=== PATIENT | female | born 1935 | race Hispanic/Latino ===

== ENCOUNTER 2018-04-15 18:39 | Inpatient (IN) | payer MEDICARE ==
[~2018-04-15] VITALS: Ht 165.1 cm; Wt 87.6 kg
[2018-04-15 19:41] LABS: APPEARANCE,URINE Cloudy (CLEAR); BILIRUBIN,URINE Negative (NEGATIVE); COLOR,URINE Yellow (YELLOW); GLUCOSE, URINE (UA) Negative (NEGATIVE); KETONES,URINE Negative (NEGATIVE); LEUKOCYTE ESTERASE ,URINE Large (NEGATIVE); NITRATE,URINE Positive (NEGATIVE); OCCULT BLOOD,URINE Nonhemolyzed Trace (NEGATIVE); PROTEIN,URINE Negative (NEGATIVE)
[2018-04-15 20:03] LABS: BACTERIA,URINE Moderate /HPF (None Seen); SQUAMOUS EPITHELIAL CELL,UR 0-2 /HPF (0-2)
[2018-04-15 20:53] LABS: BASOPHILS % (AUTO) 0.4 % (0.0-5.0); EOSINOPHILS % (AUTO) 6.5 % (0.0-8.0); HEMATOCRIT 39.1 % (36-48); MEAN CORPUSCULAR HEMOGLOBIN 30.6 pg (27.0-33.0); MEAN CORPUSCULAR HGB CONC 33.8 g/dL (32.0-36.0); MEAN CORPUSCULAR VOLUME 90.5 fL (79-99); NEUTROPHILS % (AUTO) 66.1 % (40.0-77.0); NUCLEATED RED BLOOD CELLS 0.1 % (0.0-0.19); PLATELET COUNT (AUTO) 227 K/uL (130-400); RED BLOOD CELL COUNT(AUTO) 4.32 MIL/uL (4.00-5.50); RED CELL DISTRIBUTION WIDTH 13.1 % (11.0-15.5); WHITE BLOOD COUNT (AUTO) 9.7 K/uL (4.8-10.8)
[2018-04-15] MEDS ORDERED: SODIUM CHLORIDE 0.9% 50 ML IV ONE (20:57)
[2018-04-15 21:08] LABS: CARBON DIOXIDE 26 mmol/L (21-32); CHLORIDE 102 mmol/L (101-111); CREATININE 0.9 mg/dL (0.5-1.5); GLOMERULAR FILTR. RATE CALC 64 mL/min (>60); GLUCOSE,RANDOM 106 mg/dL (70-105); POTASSIUM 4.1 mmol/L (3.5-5.1); SODIUM SERUM 138 mmol/L (136-145); UREA NITROGEN, BLOOD 14 mg/dL (7-18)
[2018-04-15 21:18] LABS: ALANINE AMINOTRANSFERASE 20 U/L (12-78); ALBUMIN 3.5 g/dL (3.5-5.0); ASPARTATE AMINOTRANSFERASE 30 U/L (10-37); BILIRUBIN,TOTAL 0.6 mg/dL (0.2-1.0); CREATINE KINASE, TOTAL 122 U/L (21-232); INR 0.96 (0.85-1.15); MYOGLOBIN 99 ng/mL (10-92); PARTIAL THROMBOPLASTIN TIME 28.2 SEC (26.3-35.5); PROTHROMBIN TIME 10.1 SEC (9.6-11.6); TOTAL PROTEIN, SERUM 8.1 g/dL (6.0-8.3); TROPONIN I < 0.04 ng/mL (0.00-0.06)
[2018-04-15] MEDS ORDERED: AZITHROMYCIN 500MG+NS 250ML 250 ML IV ONE (21:30)
[2018-04-15] MEDS ORDERED: ACETAMINOPHEN 325 MG TAB ONE (21:30)
[2018-04-15] MEDS ORDERED: LORAZEPAM 0.5 MG TABLET PO PRN (22:45)
[2018-04-15] MEDS ORDERED: ONDANSETRON HCL 4 MG/2 ML VIAL IV PRN (22:45)
[2018-04-15] MEDS ORDERED: SODIUM CHLORIDE 0.9% 1000ML 1,000 ML IV ONE (23:20)
[2018-04-15] MEDS ORDERED: ALBUTEROL SULFATE 0.083% 2.5 MG/3 ML INH IH ONE (23:27)
[2018-04-15] MEDS ORDERED: GUAIFENESIN-CODEINE 5 ML SYRUP ONE (23:30)
[2018-04-16] MEDS ORDERED: LACTATED RINGERS 1000ML 1,000 ML IV ONE (01:02)
[2018-04-16 01:05] VITALS: BP 133/54
[2018-04-16] MEDS ORDERED: ACETAMINOPHEN 325 MG TAB ONE (02:12)
[2018-04-16 04:00] VITALS: BP 125/68
[2018-04-16] MEDS: ALBUTEROL SULFATE 0.083% 2.5 MG/3 ML INH IH SCH ×5 (06:00→23:35)
[2018-04-16] MEDS ORDERED: ALBUTEROL SULFATE 0.083% 2.5 MG/3 ML INH IH ONE (07:16)
[2018-04-16 08:11] VITALS: BP 123/77
[2018-04-16] MEDS: LACTATED RINGERS 1000ML 1,000 ML IV SCH (09:21)
[2018-04-16] MEDS: FAMOTIDINE/PF 20 MG/2 ML VIAL IV SCH (09:22)
[2018-04-16] MEDS: ENOXAPARIN SODIUM 30 MG/0.3 ML SQ SCH ×2 (09:22→21:06)
[2018-04-16] MEDS: GUAIFENESIN-CODEINE 5 ML SYRUP PO PRN ×3 (09:24→23:57)
[2018-04-16] MEDS: ACETAMINOPHEN 325 MG TAB PO PRN ×3 (09:26→23:58)
[2018-04-16 11:00] VITALS: BP 118/88
[2018-04-16] MEDS ORDERED: LOSA25TA41 PO (15:46)
[2018-04-16] MEDS ORDERED: LEVO112T7 PO (15:46)
[2018-04-16] MEDS ORDERED: AMLO5TAB9 PO (15:46)
[2018-04-16] MEDS ORDERED: CARV12.511 PO (15:47)
[2018-04-16] MEDS ORDERED: PRAV40TA3 PO (15:48)
[2018-04-16 16:00] VITALS: BP 139/72
--- NOTE | 2018-04-16 16:14 | NUR ---
DCP CM met with pt discussed dc plans. Pt is independent prior to admission, lives at home with spouse. Denies any equipments/services. Pt feels safe to go back home, spouse able to assist with transportation and needs as necessary. DC plan to home once stable. CM to cont to follow up. Addendum: 04/16/18 at 1615 by SANDRA VELÁZQUEZ LVN CM Amended: Links added.
[2018-04-16 19:55] VITALS: BP 130/72
[2018-04-16] MEDS ORDERED: CEFTRIAXONE SODIUM 1 GM IV SCH (20:00)
--- NOTE | 2018-04-16 21:10 | NUR ---
MEDS PT SITTING IN THE CHAIR, WATCHING TV. NO COMPLAINTS VERBALIZED. NO DISTRESS NOTED. DUE MEDS ADMINISTERED, TOLERATED WELL. KEPT COMFORTABLE. WILL MONITOR PT. CALL LIGHT WITHIN REACH.
[2018-04-16] MEDS ORDERED: AZITHROMYCIN 500MG+NS 250ML 250 ML IV SCH (21:30)
--- NOTE | 2018-04-16 23:58 | NUR ---
FEVER PT HAS TEMPERATURE 100.2, WARM TO TOUCH. MEDICATED WITH TYLENOL PO AND GUAIFENESIN PO GIVEN FOR COUGH. KEPT COMFORTABLE IN BED WITH HOB ELEVATED. WILL RE-ASSESS PT. Addendum: 04/17/18 at 0043 by FAMILIA JOSEPH RN RN Amended: Links added.
[2018-04-17] VITALS (7 sets, daily range): BP systolic 121–158; BP diastolic 68–86
--- NOTE | 2018-04-17 02:00 | NUR ---
ROUNDS PT RESTING WELL, FAIRLY ASLEEP WITH RESPIRATIONS EVEN AND UNLABORED. KEPT UNDISTURBED FOR NOW. WILL MONITOR PT.
[2018-04-17] MEDS: LACTATED RINGERS 1000ML 1,000 ML IV SCH ×2 (04:03→16:21)
[2018-04-17 04:38] LABS: BASOPHILS % (AUTO) 0.4 % (0.0-5.0); EOSINOPHILS % (AUTO) 1.3 % (0.0-8.0); HEMATOCRIT 35.2 % (36-48); LYMPHOCYTES % (AUTO) 35.6 % (21.0-51.0); MEAN CORPUSCULAR HEMOGLOBIN 30.5 pg (27.0-33.0); MEAN CORPUSCULAR HGB CONC 33.4 g/dL (32.0-36.0); MEAN CORPUSCULAR VOLUME 91.4 fL (79-99); MONOCYTES % (AUTO) 13.7 % (3.0-13.0); NUCLEATED RED BLOOD CELLS 0.1 % (0.0-0.19); PLATELET COUNT (AUTO) 178 K/uL (130-400); RED BLOOD CELL COUNT(AUTO) 3.85 MIL/uL (4.00-5.50); RED CELL DISTRIBUTION WIDTH 13.2 % (11.0-15.5); WHITE BLOOD COUNT (AUTO) 6.2 K/uL (4.8-10.8)
[2018-04-17 05:05] LABS: CREATININE 0.9 mg/dL (0.5-1.5); POTASSIUM 3.6 mmol/L (3.5-5.1)
[2018-04-17] MEDS: ALBUTEROL SULFATE 0.083% 2.5 MG/3 ML INH IH SCH ×4 (06:00→23:22)
--- NOTE | 2018-04-17 06:00 | NUR ---
ROUNDS PT RESTING WELL, CLAIMS TO BE FEELING BETTER. NO DISTRESS NOTED. FOR MORE CARE.
[2018-04-17] MEDS: FAMOTIDINE/PF 20 MG/2 ML VIAL IV SCH (09:26)
[2018-04-17] MEDS: LEVOFLOXACIN 500 MG/D5W 100 ML 100 ML IV SCH (09:26)
[2018-04-17] MEDS: ENOXAPARIN SODIUM 30 MG/0.3 ML SQ SCH ×2 (09:27→20:14)
[2018-04-17] MEDS: ACETAMINOPHEN 325 MG TAB PO PRN (09:28)
--- NOTE | 2018-04-17 20:15 | NUR ---
MEDS PT'S DUE MEDS ADMINISTERED, TOLERATED WELL. PT STILL SITTING ON THE CHAIR. KEPT RESTED. CALL LIGHT WITHIN REACH. WILL MONITOR PT.
[2018-04-17] MEDS: GUAIFENESIN-CODEINE 5 ML SYRUP PO PRN (21:47)
--- NOTE | 2018-04-17 22:00 | NUR ---
ROUNDS PT RESTING WELL, FAIRLY ASLEEP WITH RESPIRATIONS EVEN AND UNLABORED. NO DISTRESS NOTED. KEPT UNDISTURBED FOR NOW. CALL LIGHT WITHIN REACH. WILL MONITOR PT.
[2018-04-18] MEDS: LACTATED RINGERS 1000ML 1,000 ML IV SCH ×2 (00:08→03:48)
--- NOTE | 2018-04-18 01:10 | NUR ---
DRESSING PT GOT BACK FROM THE BATHROOM AND PIV DRESSING IS COMING OFF. PIV DRESSING CHANGED. PLACED BACK IN BED AND KEPT COMFORTABLE. CALL LIGHT WITHIN REACH. RE-ITERATED FALL PRECAUTIONS. PT VERBALIZES UNDERSTANDINGS.
[2018-04-18 04:38] VITALS: BP 136/64
--- NOTE | 2018-04-18 05:49 | NUR ---
ROUNDS PT RESTING WELL, SLEPT AT INTERVALS. CLAIMS OF HER COUGH BEING BETTER. NO CONCERNS VERBALIZED AT THIS TIME. KEPT COMFORTABLE. FOR MORE CARE.
[2018-04-18] MEDS: ALBUTEROL SULFATE 0.083% 2.5 MG/3 ML INH IH SCH ×2 (06:38→11:22)
[2018-04-18] MEDS ORDERED: LEVOTHYROXINE 112 MCG TABLET PO SCH (07:30)
[2018-04-18 08:00] VITALS: BP 135/75
[2018-04-18] MEDS ORDERED: LEVO500T2 PO (08:44)
[2018-04-18] MEDS ORDERED: AMLODIPINE BESYLATE 5 MG TAB PO SCH (09:00)
[2018-04-18] MEDS ORDERED: CARVEDILOL 12.5 MG TABLET PO SCH (09:00)
[2018-04-18] MEDS ORDERED: LOSARTAN 50 MG TABLET PO SCH (09:00)
[2018-04-18] MEDS: FAMOTIDINE/PF 20 MG/2 ML VIAL IV SCH (09:41)
[2018-04-18] MEDS: LEVOFLOXACIN 500 MG/D5W 100 ML 100 ML IV SCH (09:43)
[2018-04-18] MEDS: ENOXAPARIN SODIUM 30 MG/0.3 ML SQ SCH (09:44)
[2018-04-18 12:00] VITALS: BP 137/73
[2018-04-18] MEDS ORDERED: ***HM***Pravastatin Sodium 40 MG PO SCH (21:00)
== END 2018-04-18 13:50 | disposition home or self-care (01) | DRG 689 ==
LOC: EDH 18:39 → OBSVTOIN 22:00 → EDHIP 22:00 → 3BH 04-16 00:01
PROVIDERS: ADMIT Internal Medicine; ATTEND Internal Medicine
DX: N39.0 Urinary tract infection, site not specified (principal); J18.9 Pneumonia, unspecified organism; B96.1 Klebsiella pneumoniae [K. pneumoniae] as the cause of diseases classified elsewhere; E03.9 Hypothyroidism, unspecified; I10 Essential (primary) hypertension; Z90.711 Acquired absence of uterus with remaining cervical stump; Z88.0 Allergy status to penicillin
CPT/HCPCS: 36415; 71045; 80048; 80053; 81001; 82550; 83605; 83874; 84484; 85025; 85610; 85730; 87040; 87077; 87088; 87186; 87804; 87880; 93005; 94640; 94664; G0378; J0456; J0696; J1650; J1956; J3490; J7030; J7120

== ENCOUNTER → 2018-06-08 | Outpatient (CLI) | payer MEDICARE ==
[~2018-06-08] MED LIST: AMLO5TAB9 PO; CARV12.511 PO; LEVO112T7 PO; LEVO500T2 PO; LOSA25TA41 PO; PRAV40TA3 PO
== END | disposition home or self-care (01) ==
LOC: RAH 11:33
PROVIDERS: ATTEND Internal Medicine
DX: M17.0 Bilateral primary osteoarthritis of knee (principal); M25.762 Osteophyte, left knee; M25.761 Osteophyte, right knee
CPT/HCPCS: 73562

== ENCOUNTER → 2018-08-09 | Outpatient (CLI) | payer MEDICARE | END | disposition home or self-care (01) | LOC: RAH 11:18 | PROVIDERS: ATTEND Internal Medicine | DX: M48.07 Spinal stenosis, lumbosacral region (principal); M47.817 Spondylosis without myelopathy or radiculopathy, lumbosacral region; I25.10 Atherosclerotic heart disease of native coronary artery without angina pectoris; M25.78 Osteophyte, vertebrae | CPT/HCPCS: 72100; 72220 ==

== ENCOUNTER → 2018-11-20 | Outpatient (CLI) | payer MEDICARE | END | disposition home or self-care (01) | LOC: RAH 08:48 | PROVIDERS: ATTEND Internal Medicine | DX: M48.061 Spinal stenosis, lumbar region without neurogenic claudication (principal); M51.36 Other intervertebral disc degeneration, lumbar region; N28.1 Cyst of kidney, acquired | CPT/HCPCS: 72148 ==

== ENCOUNTER → 2018-12-12 | Outpatient (CLI) | payer MEDICARE | END | disposition home or self-care (01) | LOC: RAH 09:40 | PROVIDERS: ATTEND Physical Medicine & Rehabilitation | DX: M17.0 Bilateral primary osteoarthritis of knee (principal); M21.061 Valgus deformity, not elsewhere classified, right knee; M21.062 Valgus deformity, not elsewhere classified, left knee; M25.762 Osteophyte, left knee; M25.761 Osteophyte, right knee | CPT/HCPCS: 73562 ==

== ENCOUNTER → 2020-05-26 | Outpatient (CLI) | payer MEDICARE ==
[~2020-05-26] MED LIST changes: +AMLO-257 PO; -AMLO5TAB9 PO
== END | disposition home or self-care (01) ==
LOC: RAH 14:12
PROVIDERS: ATTEND Physical Medicine & Rehabilitation
DX: M48.02 Spinal stenosis, cervical region (principal); R53.1 Weakness
CPT/HCPCS: 72141

== ENCOUNTER → 2022-06-07 | Outpatient (CLI) | payer MEDICARE | END | disposition home or self-care (01) | LOC: RAH 09:32 | PROVIDERS: ATTEND Physician Assistant | DX: M17.11 Unilateral primary osteoarthritis, right knee (principal); M25.861 Other specified joint disorders, right knee; M79.89 Other specified soft tissue disorders | CPT/HCPCS: 73562 ==

== ENCOUNTER → 2023-05-23 | Outpatient (CLI) | payer MEDICARE | END | disposition home or self-care (01) | LOC: RAH 14:50 | PROVIDERS: ATTEND Physical Medicine & Rehabilitation | DX: M47.26 Other spondylosis with radiculopathy, lumbar region (principal); M48.061 Spinal stenosis, lumbar region without neurogenic claudication; M51.16 Intervertebral disc disorders with radiculopathy, lumbar region | CPT/HCPCS: 72148 ==